=== PATIENT | female | born 1940 | race Caucasian/White ===

== ENCOUNTER → 2017-07-30 | Day surgery (SDC) | payer OTHER, MEDICARE ==
--- NOTE | 2017-07-31 18:04 | PATH ---
Surgical Pathology Report Patient Name: MOHINDER PENA [facility]. Rec. #: [id number] /Age/Gender: 1940 (Age: 77) / F Account: [id number] Location: Taken: 07/30/2017 Received: 07/30/2017 Reported: 07/31/2017 Physicians: Kaylin Acosta M.D. Specimen(s) Received RIGHT BREAST CORE BIOPSY 8-9:00 2 CM FN Clinical History Non-palpable lesion Ultrasound findings: Highly suspicious/malignant Final Diagnosis BREAST, RIGHT, 8- 9:00, 2 CM FN, CORE BIOPSY: SMALL RADIAL SCAR (2 MM). 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 Electronically Signed Karina Taylor M.D. Gross Description Received in formalin labeled "right breast biopsy 8-9:00, 2cmfn," is a 1.8 x 1.4 x 0.3 cm aggregate of multiple huynh-yellow, irregular to cylindrical portions of fibroadipose tissue. The formalin is filtered and the specimen is entirely submitted in one cassette. Time to formalin fixation: < 1 minute Total formalin fixation time: Approximately 7 hours 07/30/2017
--- NOTE | 2017-07-31 18:56 | OP ---
DATE OF OPERATION: 07/30/2017 PREOPERATIVE DIAGNOSIS: Right breast mass, 8 to 9 o'clock, 2 cm from the nipple. POSTOPERATIVE DIAGNOSIS: Right breast mass, 8 to 9 o'clock, 2 cm from the nipple. PROCEDURE: Right ultrasound guided core biopsy with clip placement. ANESTHESIA: Local. ATTENDING SURGEON: Félix Yancey M.D. ESTIMATED BLOOD LOSS: Minimal. COMPLICATIONS: None. DESCRIPTION OF PROCEDURE: Patient was made aware of risks and benefits of the procedure and consented. The patient was placed in a supine position. Under sterile conditions, with 1% lidocaine for local anesthesia, a small lula was made in the skin. Using a 10-gauge suction biopsy device, the inferolateral approach, multiple cores were obtained and submitted to pathology. Likewise under ultrasound guidance, a U-shaped clip was placed into the biopsy region. Steri-Strip and a sterile bandage was applied. Patient tolerated the procedure well. Was discharged home, and we will contact her with results. FÉLIX YANCEY M.D. [id number]
== END | disposition home or self-care (01) ==
LOC: FRADUS-SUR 15:10
PROVIDERS: ATTEND Surgery Surgical Oncology
PROC: 0HBT3ZX Excision of Right Breast, Percutaneous Approach, Diagnostic (ICD-10-PCS; principal; 2017-07-30)
DX: N60.31 Fibrosclerosis of right breast (principal); N63.11 Unspecified lump in the right breast, upper outer quadrant; N64.89 Other specified disorders of breast
CPT/HCPCS: 19083; 87899; 88305-TC